=== PATIENT | female | born 1975 | race African-American/Black ===

== ENCOUNTER → 2017-06-21 | Outpatient (CLI) | payer BC ==
[~2017-06-21] MED LIST: CLC150 PO; ESCI10TA17; PRLSR20
--- NOTE | 2017-06-21 11:35 | Discharge Instructions ---
Discharge Instructions Procedure Procedure Date: June 21, 2017. Reason for visit: Left Breast Lump. Discharge Discharge Date: June 21, 2017. Discharge Diagnosis: status post breast biopsy Instructions Activity Recommendations: No limitations, Additional Limitations (see below) Return to School/Work: no limitations Recommended Home Diet: No Limitations Provider Instructions: ACTIVITY RECOMMENDATIONS: * No lifting, pushing, pulling or exercising the affected side for three days. RETURN TO SCHOOL/WORK: * You may return to work/school after the procedure, but do not perform any strenuous activities for 24 to 48 hours. MEDICATIONS: * Tylenol (two 325 mg) every four to six hours if needed for mild pain (if not allergic to Tylenol). DIET: * Resume previous diet. SPECIAL CARE INSTRUCTIONS: * Keep biopsy site dry for 24 hours. May shower after 24 hours, but do not soak (bathe) incision. * May remove Tegaderm (plastic patch) tomorrow AFTER showering. * Leave the steri-strips on for one week. Allow the steri-strips to fall off by themselves. If not off after one week, you may remove them. You may place a Bandaid crosswise over the strips, if desired. * Apply ice 10 minutes on and 10 minutes off as needed. * Wear a bra at bedtime to sleep more comfortably for 2-3 days. * Your referring physician should have the results after approximately 5 to 7 business days. * Call for unusual bleeding, fever, drainage, etc or if you have any questions call during normal business hours or after hours call Dr Weber, . FOLLOW UP VISIT: Follow-up with Referring Physician as scheduled. Allergies Uncoded Allergies: PCN (Allergy, Mild, 08/17/05) Dannielle Hyde Recommendations: Call your doctor if: * Temperature above 101 degrees * Pain not relieved by pain medicine ordered * There is increased drainage or redness from any incision * You have any unanswered questions or concerns. Your Doctors Instructions noted above were prepared by provider Kathleen Weber. Patient Signature Section: Patient Instructions Signature Page Pal Grant Patient (or Guardian) Signature/Date: I have read and understand the instructions given to me by my caregivers. Caregiver/RN/Doctor Signature/Date: The above-named patient and/or guardian has received patient instructions on this date. + Original Patient Signature Page (only) stays with chart. Please make copy for patient.
--- NOTE | 2017-06-21 14:18 | MAMMOGRAPHY REPORT ---
ULTRASOUND GUIDED BIOPSY LEFT BREAST: 06/21/2017 CLINICAL HISTORY: Suspicious left 11:00 breast mass. PATIENT CONSENT: The procedure, risks and benefits were discussed with the patient and informed writt en consent was obtained. A timeout was performed immediately prior to the procedure. PROCEDURE DESCRIPTION: With ultrasound guidance, aseptic technique, and lidocaine as the local anesth etic (1% lidocaine to anesthetize the skin and 1% lidocaine with epinephrine to anesthetize the deepe r tissues), the mass of concern in the left 11:00 breast was sampled 4 times with a 14-gauge Achieve biopsy needle. The needle was difficult to visualize during the procedure due to the very deep locat ion of the mass being biopsied. Immediately thereafter, with ultrasound guidance, aseptic technique, and lidocaine as the local anesthetic, a metallic localizer clip was placed centrally in the mass. Direct pressure was applied to the site immediately post procedure and hemostasis was achieved. Post procedure unilateral mammograms were performed to confirm placement of the clip in the expected locat ion of the breast mass. The patient tolerated the procedure without complication. She was given wou nd care instructions. The specimens were sent to pathology for analysis. COMPARISON: Comparison is made to exams dated: 06/21/2017 mammogram - [facility] and 12/17/2005 mammogram. IMPRESSION: ULTRASOUND GUIDED BIOPSY Ultrasound guided core needle biopsy of the suspicious mass in the left 11:00 breast, with clip place ment. The patient will receive pathology results from her referring provider. Kathleen Weber M.D. /:06/21/2017 12:43:37 Script Writer: Alix LAFLEUR)Miko), [facility]
--- NOTE | 2017-06-21 14:21 | MAMMOGRAPHY REPORT ---
BILATERAL DIGITAL DIAGNOSTIC MAMMOGRAM TOMOSYNTHESIS WITH CAD AND TARGETED BILATERAL ULTRASOUND: 2017 CLINICAL HISTORY: The patient reports a tender palpable lump in the left breast. TECHNIQUE: Breast tomosynthesis in addition to standard 2D mammography was performed. Current study was also evaluated with a Computer Aided Detection (CAD) system. Bilateral CC and MLO 2D and tomosyn thesis images were obtained. COMPARISON: Prior digitized mammograms dated 12/14/2005. BREAST COMPOSITION: There are scattered areas of fibroglandular density in both breasts. FINDINGS: A triangle marker ackerman the site of the palpable lump in the left upper inner quadrant. At the site of the palpable lump there is a lobulated spiculated irregular mass measuring approximately 2.4 x 2.6 x 2.7 cm. A few punctate and amorphous calcifications are seen within the mass. The codie evelia of both breasts demonstrate no suspicious masses, calcifications, or areas of architectural dis tortion. An asymmetry in the left lateral breast on the cc view is stable compared to the 2006 exam. Scattered bilateral benign-appearing calcifications are noted. There is a circumscribed oval benig n-appearing 12 mm mass in the right upper outer anterior breast which appears stable compared to the 2006 exam although ultrasound was performed. Targeted ultrasound was performed of the area of the palpable lump pointed out by the patient in the left breast at approximately 11:00, 11 cm from the nipple. At the site of the palpable lump there is a subtle isoechoic irregular mass which measures 2.2 x 1.6 x 1.9 cm. Note that measurements are more accurate on the mammogram. This corresponds with the mammographic mass and is suspicious for malign jacky. Recommend ultrasound-guided core needle biopsy for further evaluation. Targeted ultrasound was performed of the left axillary region. The exam is somewhat limited as the p atient was extremely anxious and would not adequately lift her arm for a thorough examination. Howev er, within the limitations of the exam,, there are morphologically normal left axillary lymph nodes w ithout clear evidence of adenopathy. Ultrasound was performed of the right upper outer anterior breast in the region of the mammographic m ass. In the right 9:00 breast, 3 cm from the nipple, there is an oval circumscribed parallel hypoech oic benign-appearing 11 x 5 x 11 mm mass. This corresponds with a mammographic mass which has been s table dating back to the 2006 exam, and is considered benign given long-term stability and likely rep resents a fibroadenoma. The biopsy was performed the same day. Postprocedural left CC and ML tomosynthesis images were obtai bryanna after the biopsy, which shows a new biopsy marker clip within the biopsied mass in the left 11:00 breast. IMPRESSION: ACR BI-RADS CATEGORY 4: SUSPICIOUS, TARGETED ULTRASOUND ACR BI-RADS CATEGORY 4: SUSPICIO US 1. Irregular 2.7 x 2.6 cm mass at the site of the palpable lump in the left 11:00 breast. The mass is suspicious for malignancy and ultrasound-guided core needle biopsy is recommended for further eval uation. 2. The remainder of both breasts demonstrate no mammographic evidence of malignancy. 3. No clear left axillary adenopathy is evident on ultrasound although evaluation was somewhat limite d. A phone call was made to the physician's office to confirm faxed results were received. The patient has been verbally notified of the results. The biopsy was performed the same day. Approximately 10% of breast cancers are not detected with mammography. A negative mammographic report should not delay biopsy if a clinically suggestive mass is present. Kathleen Weber M.D. ah/:06/21/2017 12:11:11 Clinical Practitioner: Alix LAFLEUR)(Jamey), [facility] letter sent: Abnormal 4/5 BI-RADS Code: ACR BI-RADS Category 4: Suspicious Ultrasound BI-RADS: ACR BI-RADS Category 4: Suspici ous
== END | disposition home or self-care (01) ==
LOC: C.MAMM 09:40
PROVIDERS: ATTEND Family Medicine
DX: N63.20 Unspecified lump in the left breast, unspecified quadrant (principal); C50.912 Malignant neoplasm of unspecified site of left female breast

== ENCOUNTER 2021-10-13 11:43 | Inpatient (IN) ==
--- NOTE | 2021-10-13 12:25 | Emergency Department Note ---
Impression & Plan Chest pain, Shortness of breath, Exercise hypoxemia, Abnormal ECG ED Provider Note NAME: JC HAWK AGE: 46 SEX: F : 1975 ARRIVES VIA: Walk-In INFORMANT: Patient ED PROVIDER(S): Jamison Cuevas DO CHIEF COMPLAINT: shortness of breath and chest pain HPI: Patient is a 46-year-old female morbidly obese with a past medical history of borderline hypertension, diabetes, dyslipidemia, GERD, PCOS, anxiety who presents to the ER from the PCPs office for shortness of breath. Shortness of breath has been getting worse over the past year and specifically over the past 2 weeks. She also admits to chest heaviness over the past 2 weeks. This can be after eating or after she exerts herself. She denies any belly pain, nausea, vomiting, or diarrhea. No dysuria, urgency, or frequency. She does admit to coughing up some pink sputum this week. She was seen by her PCP and referred in as she was found to be hypoxic with minimal exertion and an abnormal EKG. Pulse ox was 86 to 89% with minimal exertion per PCPs note. ROS: See above HPI for pertinent positives & negatives. A total of 10 systems reviewed and were otherwise negative. PAST MEDICAL HISTORY:See Below PAST SURGICAL HISTORY:See Below FAMILY HISTORY:See Below SOCIAL HISTORY:See Below HOME MEDICATIONS:See Below ALLERGIES:See Below VITALS:See Below PHYSICAL EXAMINATION: GENERAL: Sitting up in bed, alert, morbidly obese, disheveled, crying EYE EXAM: normal conjunctiva. PERRL and EOM's grossly intact. OROPHARYNX: Dry mucous membranes NECK: supple, no nuchal rigidity, no adenopathy, non-tender LUNGS: Distant lung sounds. Normal chest wall mechanics HEART: Distant, S1 normal and S2 normal ABDOMEN: abdomen soft, non-tender, normo-active bowel sounds, no masses, no rebound or guarding. UPPER EXTREMITIES: upper extremities are grossly normal. LOWER EXTREMITIES: No pitting edema. NEURO EXAM: Normal sensorium, cranial nerves II-XII grossly intact, normal speech, no gross weakness of arms, no gross weakness of legs. MEDICAL DECISION MAKING: Patient is a 46-year-old female with past medical history of PCOS, GERD, prediabetes, dyslipidemia, hypertension and morbid obesity that presents the ER for shortness of breath and chest pain. She was referred in by the PCP after being found to be hypoxic with only minimal exertion and EKG showing ST wave c hanges. No old to compare to. IV was established blood work was obtained. Labs show mild leukocytosis 11,000. Mild anemia 11. INR was unremarkable. D- dimer was elevated at 1070. BMP with a slightly elevated chloride at 108. LFTs bilirubin was unremarkable. Troponin was negative. COVID was negative. Duplex of lower extremities were negative. Attempted to obtain CT angio of the chest but IV site which was placed by IV team under ultrasound guidance blue. Had to use left arm which is limb restricted. Obtained access so she had access for admission however did not order anything through the IV. EKG does show ST wave changes and patient did have exertional hypoxia with only minimal exertion. She does warrant additional work-up. Chest x-ray was unremarkable. Discussed with Martínez Anthony for further evaluation. Will likely need a V/Q study in the morning as not currently available and an echo. Triage Nursing notes reviewed. Limited review of prior medical records performed Vital Signs: reviewed and remarkable for HTN and tachy Differential diagnosis: Differential diagnoses includes but is not limited to pneumonia, bronchitis, COPD/Asthma exacerbation, pneumothorax, pulmonary embolism, congestive heart failure, acute coronary syndrome ER treatment provided: See below Diagnostics interpreted by me: ECG: Sinus tachycardia rate of 102 Normal axis T wave inversion inferior leads ST depressions in the inferior leads Nonspecific ST wave changes in V4 through V6 QTC 471 No old to compare to Cardiac Monitoring: An order was placed for continuous cardiac monitoring. The monitor shows a rate of 100 with sinus rhythm. Laboratory studies: As stated above and show below. Imaging studies: AP upright 1 view the chest was unremarkable Consultation(s): Discussed with Martínez Anthony for further evaluation Procedures: none Critical Care: None Past Med/Surg History Medical History delivery delivered External hemorrhoid Frequency of urination History of cyst of breast History of lump of left breast History of ovarian cyst Surgical History H/O oral surgery S/P bilateral breast reduction S/P lumpectomy, left breast Family History Grandmother (Maternal) Breast cancer Myocardial infarction Mother Hyperlipemia Obesity Denies family history of Ovarian cancer Prostate cancer Colorectal cancer Social History Smoking Status: Never smoker Second Hand Exposure: No; Hx Alcohol Use: Yes Hx Substance Use: No Preferred Language: Bermudian Communication Ability: Effective Visual Impairment: No Limitations Hearing Ability: Normal Beliefs That Will Affect Care: None marital status: Single Current Living Situation: Family current occupational status: employed current occupation: camp director Feels Safe at Home: Yes Childhood Exposure to Second-Hand Smoke: Yes Dental Care, Regularly: Yes Physical Activity Frequency: Does not Exercise Seatbelt Use: always Sunscreen Use: No Allergies Allergies Allergy/AdvReac Type Severity Reaction Status Date / Time Penicillins Allergy Mild rash Verified 09/28/20 08:10 Home Meds Home Medications Medication Instructions Recorded Confirmed ascorbic acid (vitamin C) 1,000 mg 2 gm PO DAILY 09/28/18 10/13/21 tablet coenzyme Q10 75 mg capsule 75 mg PO DAILY 09/28/18 10/13/21 omega-3 fatty acids 1,000 mg See Rx Instructions PO .COMPLEX 10/28/18 10/13/21 capsule (Fish Oil Concentrate) exemestane 25 mg tablet 25 mg PO DAILY 12/30/18 10/13/21 cholecalciferol (vitamin D3) 4,000 unit PO DAILY 07/21/20 10/13/21 Results & Data (ED) Vital Signs Vital Signs - 24 hr 10/13/21 11:49 10/13/21 13:49 10/13/21 15:26 Temperature 37.2 C Temperature Source Oral Pulse Rate 100 H Pulse Rate [Apical] 80 93 H Respiratory Rate 22 19 22 Respiratory Effort / Characteristics Non-Labored Non-Labored Spontaneous Respiratory Depth Normal Normal Respiratory Pattern Regular Regular Blood Pressure 178/95 H Blood Pressure [Right Arm] 158/94 H 156/104 H Blood Pressure Mean 122 Blood Pressure Mean [Right Arm] 115 121 Blood Pressure Position [Right Arm] Sitting Pulse Oximetry 98 100 Oxygen Delivery Method Room Air Room Air Room Air Sepsis Recent Fever Within 48 Hours Yes Sepsis New/Unexplained Change in Mental Status No Sepsis Action Taken by Nursing No Action Required 10/13/21 15:27 10/13/21 17:00 Temperature Temperature Source Pulse Rate 88 Pulse Rate [Apical] 79 Respiratory Rate 20 22 Respiratory Effort / Characteristics Non-Labored Spontaneous Respiratory Depth Normal Respiratory Pattern Regular Blood Pressure Blood Pressure [Right Arm] 147/93 H Blood Pressure Mean Blood Pressure Mean [Right Arm] 111 Blood Pressure Position [Right Arm] Pulse Oximetry 100 100 Oxygen Delivery Method Room Air Room Air Sepsis Recent Fever Within 48 Hours Sepsis New/Unexplained Change in Mental Status Sepsis Action Taken by Nursing Laboratory Data Result diagrams: 10/13/21 14:24 10/13/21 14:24 Lab Results 10/13/21 10/13/21 10/13/21 Range/Units 13:00 14:24 14:24 WBC 11.45 H (4.8-10.8) K/ul RBC 5.30 H (3.93-5.22) M/uL Hgb 11.4 L (12.0-16.0) g/dl Hct 37.4 (34.1-44.9) % MCV 70.6 L (80.0-100.0) fL MCH 21.5 L (25.0-34.0) pg MCHC 30.5 L (32.0-36.0) g/dL RDW Std Deviation 39.8 (36.4-46.3) fL RDW Coeff of Supriya 15.8 H (11.5-14.5) % Plt Count 315 (130-400) K/uL MPV 10.1 (9.4-12.3) fL Immature Gran % (Auto) 0.3 % Neut % (Auto) 78.1 % Lymph % (Auto) 15.9 % [place] % (Auto) 4.7 % Eos % (Auto) 0.7 % Baso % (Auto) 0.3 % Neut # (Auto) 8.94 H (1.4-6.5) K/uL Lymph # (Auto) 1.82 (1.2-3.4) K/uL [place] # (Auto) 0.54 (0.24-0.82) K/uL Eos # (Auto) 0.08 (0-0.50) K/uL Baso # (Auto) 0.04 (0-0.2) K/uL Immature Gran # (Auto) 0.03 H (0.00-0.02) K/uL PT 11.6 (9.0-12.0) Seconds INR 1.1 (0.9-1.1) APTT 28.7 (21.0-31.0) Seconds PTT Ratio 1.0 D-Dimer 1070 H* (0-500) ug/L FEU Sodium (136-145) mmol/L Potassium (3.5-5.1) mmol/L Chloride (98-107) mmol/L Carbon Dioxide (21-32) mmol/L Anion Gap (3-11) BUN (6-23) mg/dl Creatinine (0.6-1.2) mg/dl Est Cr Clr Drug Dosing ml/min Est GFR ( Amer) ml/min Est GFR (Non-Af Amer) ml/min BUN/Creatinine Ratio (10-20) Glucose (70-99(Fasting)) mg/dl Calcium (8.5-10.1) mg/dl Total Bilirubin (0.2-1.0) mg/dl AST (13-39) U/L ALT (7-52) U/L Alkaline Phosphatase (34-104) U/L Total Creatine Kinase (26-192) U/L Troponin I High Sens (0-14) pg/ml B-Natriuretic Peptide (0-100) pg/ml Total Protein (6.0-8.3) gm/dl Albumin (3.4-5.0) gm/dl Globulin (2.5-4.0) gm/dl Albumin/Globulin Ratio (0.9-2) SARS-CoV-2, RNA, NAAT NEGATIVE (NEGATIVE) 10/13/21 10/13/21 10/13/21 Range/Units 14:24 14:24 14:24 WBC (4.8-10.8) K/ul RBC (3.93-5.22) M/uL Hgb (12.0-16.0) g/dl Hct (34.1-44.9) % MCV (80.0-100.0) fL MCH (25.0-34.0) pg MCHC (32.0-36.0) g/dL RDW Std Deviation (36.4-46.3) fL RDW Coeff of Supriya (11.5-14.5) % Plt Count (130-400) K/uL MPV (9.4-12.3) fL Immature Gran % (Auto) % Neut % (Auto) % Lymph % (Auto) % [place] % (Auto) % Eos % (Auto) % Baso % (Auto) % Neut # (Auto) (1.4-6.5) K/uL Lymph # (Auto) (1.2-3.4) K/uL [place] # (Auto) (0.24-0.82) K/uL Eos # (Auto) (0-0.50) K/uL Baso # (Auto) (0-0.2) K/uL Immature Gran # (Auto) (0.00-0.02) K/uL PT (9.0-12.0) Seconds INR (0.9-1.1) APTT (21.0-31.0) Seconds PTT Ratio D-Dimer (0-500) ug/L FEU Sodium 137 (136-145) mmol/L Potassium 4.0 (3.5-5.1) mmol/L Chloride 108 H (98-107) mmol/L Carbon Dioxide 21 (21-32) mmol/L Anion Gap 8 (3-11) BUN 8 (6-23) mg/dl Creatinine 0.72 (0.6-1.2) mg/dl Est Cr Clr Drug Dosing 168.4 ml/min Est GFR ( Amer) 117.2 ml/min Est GFR (Non-Af Amer) 101.1 ml/min BUN/Creatinine Ratio 11.1 (10-20) Glucose 86 (70-99(Fasting)) mg/dl Calcium 9.9 (8.5-10.1) mg/dl Total Bilirubin 0.5 (0.2-1.0) mg/dl AST 12 L (13-39) U/L ALT 9 (7-52) U/L Alkaline Phosphatase 86 (34-104) U/L Total Creatine Kinase 63 (26-192) U/L Troponin I High Sens 4.2 (0-14) pg/ml B-Natriuretic Peptide 16 (0-100) pg/ml Total Protein 7.8 (6.0-8.3) gm/dl Albumin 3.9 (3.4-5.0) gm/dl Globulin 3.9 (2.5-4.0) gm/dl Albumin/Globulin Ratio 1.0 (0.9-2) SARS-CoV-2, RNA, NAAT (NEGATIVE) Administered Medications Aspirin (Aspirin Chew 324 Mg) 324 mg PO NOW STA Stop: 10/13/21 15:15 Last Admin: 10/13/21 15:30 Dose: 324 mg Documented By: CRISTINE Imaging Data Radiologist's Impression: Chest X-Ray 10/13/21 11:55 XR chest 1V portable CLINICAL HISTORY: Atypical chest pain. COMPARISON STUDY: Chest radiograph January 18, 2006. FINDINGS: Study is mildly compromised given suboptimal penetration related to portable technique. Lung volumes are normal. Lungs are clear. There is no pneumothorax or pleural effusion. Cardiac size is normal. Mediastinal contours are normal. There is no evidence for pulmonary edema. IMPRESSION: No acute cardiopulmonary findings. ACT 112: Negative or not required by law. Electronically signed by: Gómez Rodriguez M.D. 10/13/2021 1:38 PM Venous Doppler Study 10/13/21 16:10 ULTRASOUND BILATERAL LOWER EXTREMITY VENOUS CLINICAL HISTORY: Lower extremity edema. COMPARISON STUDY: No priors. TECHNIQUE: Real-time, grayscale, and color Doppler sonography of the deep veins of the right and left lower extremity was performed from the inguinal crease to the calf. Compression and augmentation were utilized. The examination is degraded by large body habitus. FINDINGS: There is no sonographic evidence of deep venous thrombosis identified in the right or left lower extremity. The common femoral, superficial femoral, and popliteal veins are patent and normally compressible bilaterally. The greater saphenous vein and the profunda femoris vein at the junction with the common femoral vein are clear in both legs. The visualized calf veins are patent bilaterally. IMPRESSION: There is no sonographic evidence of deep venous thrombosis identified in the right or left lower extremity. ACT 112: Negative or not required by law. Electronically signed by: Chad Romeo M.D. 10/13/2021 5:58 PM Discharge Plan Visit Data Chief Complaint: Abnormal Labs/Diagnostic Testing Stated Complaint: ADNORMAL EKG, DR REF OVER ED Provider: Jamison Cuevas Discharge Problem: Chest pain, Shortness of breath, Exercise hypoxemia, Abnormal ECG Forms Stand Alone Forms: My [facility] Prescriptions Prescriptions: No Action exemestane 25 mg tablet 25 mg PO DAILY cholecalciferol (vitamin D3) 4,000 unit PO DAILY ascorbic acid (vitamin C) 1,000 mg tablet 2 gm PO DAILY coenzyme Q10 75 mg capsule 75 mg PO DAILY omega-3 fatty acids [Fish Oil Concentrate] 1,000 mg capsule See Rx Instructions PO .COMPLEX Label Comments: PO ; Rx Instructions: PO ; Referrals Referrals: Oumou Elizalde MD [Primary Care Provider] -
--- NOTE | 2021-10-13 13:41 | XRay Report ---
XR chest 1V portable CLINICAL HISTORY: Atypical chest pain. COMPARISON STUDY: Chest radiograph January 18, 2006. FINDINGS: Study is mildly compromised given suboptimal penetration related to portable technique. Ruby g volumes are normal. Lungs are clear. There is no pneumothorax or pleural effusion. Cardiac size is normal. Mediastinal contours are normal. There is no evidence for pulmonary edema. IMPRESSION: No acute cardiopulmonary findings. ACT 112: Negative or not required by law. Electronically signed by: Gómez Rodriguez M.D. 10/13/2021 1:38 PM
[2021-10-13 14:37] LABS: Basophils # (auto) 0.04 K/uL (0-0.2); Basophils % (auto) 0.3 %; Eosinophils # (auto) 0.08 K/uL (0-0.50); Eosinophils % (auto) 0.7 %; Hematocrit (blood only) 37.4 % (34.1-44.9); Hemoglobin 11.4 g/dl (12.0-16.0); Immature Granulocytes # (auto) 0.03 K/uL (0.00-0.02); Immature Granulocytes % (auto) 0.3 %; Lymphocytes # (auto) 1.82 K/uL (1.2-3.4); Lymphocytes % (auto) 15.9 %; Mean Corpuscular Hemoglobin 21.5 pg (25.0-34.0); Mean Corpuscular Hgb Conc 30.5 g/dL (32.0-36.0); Mean Corpuscular Volume 70.6 fL (80.0-100.0); Mean Platelet Volume 10.1 fL (9.4-12.3); Monocytes # (auto) 0.54 K/uL (0.24-0.82); Monocytes % (auto) 4.7 %; Neutrophils # (auto) 8.94 K/uL (1.4-6.5); Neutrophils % (auto) 78.1 %; Platelet Count 315 K/uL (130-400); RDW Coefficient of Variation 15.8 % (11.5-14.5); RDW Standard Deviation 39.8 fL (36.4-46.3); White Blood Count 11.45 K/ul (4.8-10.8)
[2021-10-13 14:47] LABS: INR 1.1 (0.9-1.1); Partial Thromboplastin Time 28.7 Seconds (21.0-31.0); Prothrombin Time 11.6 Seconds (9.0-12.0)
[2021-10-13 14:49] LABS: D Dimer 1070 ug/L FEU (0-500)
[2021-10-13 15:06] LABS: Albumin Level 3.9 gm/dl (3.4-5.0); BUN Creatinine Ratio 11.1 (10-20); Bilirubin,Total 0.5 mg/dl (0.2-1.0); Calcium 9.9 mg/dl (8.5-10.1); Creatinine Clr Calc Pharmacy 168.4 ml/min; Est GFR (African American) 117.2 ml/min; Est GFR (Non-African American) 101.1 ml/min; Globulin 3.9 gm/dl (2.5-4.0); Total Protein 7.8 gm/dl (6.0-8.3)
[2021-10-13 15:11] LABS: Troponin I High Sensitivity 4.2 pg/ml (0-14)
[2021-10-13] MEDS ORDERED: ASPIRIN CHEW 324 MG PO STA (15:14)
--- NOTE | 2021-10-13 16:03 | Electrocardiogram Report ---
Test Reason : Blood Pressure : / mmHG Vent. Rate : 102 BPM Atrial Rate : 102 BPM P-R Int : 162 ms QRS Dur : 090 ms QT Int : 362 ms P-R-T Axes : 047 046 -13 degrees QTc Int : 471 ms Sinus tachycardia Left atrial enlargement T wave abnormality, consider inferior ischemia Abnormal ECG No previous ECGs available Confirmed by John Vieira ([id number]) on 10/13/2021 4:02:59 PM Referred By: Confirmed By:John Vieira
--- NOTE | 2021-10-13 17:59 | Ultrasound Report ---
ULTRASOUND BILATERAL LOWER EXTREMITY VENOUS CLINICAL HISTORY: Lower extremity edema. COMPARISON STUDY: No priors. TECHNIQUE: Real-time, grayscale, and color Doppler sonography of the deep veins of the right and left lower extremity was performed from the inguinal crease to the calf. Compression and augmentation wer e utilized. The examination is degraded by large body habitus. FINDINGS: There is no sonographic evidence of deep venous thrombosis identified in the right or left lower extremity. The common femoral, superficial femoral, and popliteal veins are patent and normally compressible bilaterally. The greater saphenous vein and the profunda femoris vein at the junction w ith the common femoral vein are clear in both legs. The visualized calf veins are patent bilaterally. IMPRESSION: There is no sonographic evidence of deep venous thrombosis identified in the right or lef t lower extremity. ACT 112: Negative or not required by law. Electronically signed by: Chad Romeo M.D. 10/13/2021 5:58 PM
[2021-10-13] MEDS ORDERED: ONDANSETRON INJ 2 MG/ML 2 ML VIAL IV PRN (20:55)
--- NOTE | 2021-10-13 21:29 | History & Physical Report ---
Date of Service October 13, 2021 Assessment & Plan (1) Shortness of breath: Plan: Likely due to obesity and essentially no exercise on a daily basis. Patient's mother had CHF, and she is very concerned about this as well. BNP was normal. - Echo in AM (2) Exercise hypoxemia: Plan: Concern for PE due to elevated d-dimer, but d-dimer is elevated in obesity. "Since increase in body size is associated with coagulation activation, D-dimer is elevated in many obese patients making this laboratory tool irrelevant in excluding thrombosis." ([email or web address]). - B/l Dopplers negative for DVT - CTA was attempted in the ER, but IV site blew and IV team was unable to find any other sites. To get CTA, she would need a central line or EJ placed. - My concern is really quite low for PE. After her anxiety has subsided, she is not tachycardic. She is not hypoxemic. Troponin and BNP both normal. -> If echo shows no signs of right-heart strain, would feel PE is low enough concern that I would defer further testing. (3) Abnormal ECG: Plan: Some TWIs in aVF. EKG quality is poor, but I do not note others. - Troponin negative after 3-4 weeks of shortness of breath and no chest pain. Will trend troponins and EKGs, but low concern for cardiac ischemia. (4) Anxiety: Plan: Anxiety clearly playing a large role in her presentation. - Consider SSRI as outpatient. Admission and Anticipated Discharge Date Admission Date: October 13, 2021 History of Present Illness Primary Care Provider: Oumou Elizalde MD 46yo F w/ hx of prior left-sided breast cancer who presents with shortness of breath. The patient reports that for 3-4 weeks, she has been increasingly short of breath with exertion. She reports that she is very sedentary at baseline. She works from home and reports that she mostly sits at her computer and walks to and from the bathroom throughout the day. She otherwise has no notable exercise. Over the last 3-4 weeks, she notes that she has had some increased shortness of breath even with her walking. Sometimes, she will also note some mild chest discomfort that resolves with rest. The patient went to her PCP's office today and reportedly had a pulse ox of 88% with exertion. She was also tachycardic with TW inversions in EKG; however, denied any chest pain at the time. She also notes that last Saturday, she had a cough with some mild pink frothy sputum. Allergies Allergy/AdvReac Type Severity Reaction Status Date / Time Penicillins Allergy Mild rash Verified 10/13/21 19:37 Home Medications Medication Instructions Recorded Confirmed Type ascorbic acid (vitamin C) 1,000 mg 2 gm PO DAILY 09/28/18 10/13/21 History tablet exemestane 25 mg tablet 25 mg PO DAILY 12/30/18 10/13/21 History Byron Q Coq10 10 mg PO DAILY 10/13/21 10/13/21 History cholecalciferol (vitamin D3) 50 100 mcg PO DAILY 10/13/21 10/13/21 History mcg (2,000 unit) tablet (Vitamin D3) omega-3 fatty acids-fish oil 684 1 cap PO DAILY 10/13/21 10/13/21 History mg-1,200 mg capsule,delayed release Past Med/Surg History Medical History surgical treatment delivery delivered External hemorrhoid Frequency of urination History of cyst of breast History of lump of left breast History of ovarian cyst Surgical History H/O oral surgery tooth extraction S/P bilateral breast reduction S/P lumpectomy, left breast Family History Grandmother (Maternal) Breast cancer Myocardial infarction Mother Hyperlipemia Obesity Denies family history of Ovarian cancer Prostate cancer Colorectal cancer Social History Smoking Status: Never smoker Second Hand Exposure: No; Hx Alcohol Use: Yes Hx Substance Use: No Preferred Language: Estonian Communication Ability: Effective Visual Impairment: No Limitations Hearing Ability: Normal Beliefs That Will Affect Care: None marital status: Single Current Living Situation: Family current occupational status: employed current occupation: health information management director Feels Safe at Home: Yes Childhood Exposure to Second-Hand Smoke: Yes Dental Care, Regularly: Yes Physical Activity Frequency: Does not Exercise Seatbelt Use: always Sunscreen Use: No Review of Systems Review of Systems: All systems reviewed & are unremarkable except as noted in HPI & below Physical Exam Constitutional: WD/WN, vitals as above + acute distress and + morbidly obese Eyes: EOM intact bilaterally; no conjunctival abnormality ENMT: external ear and nose normal, oropharynx normal Neck: trachea midline, no thyromegaly normal visual inspection Respiratory: normal respiratory effort, lungs clear to auscultation no respiratory distress Cardiovascular: Rate/Rhythm: regular rate and + tachycardic Gastrointestinal (Abdomen): Inspection/Auscultation: abdomen normal to inspection; abdomen not distended Musculoskeletal: no cyanosis or clubbing, extremities motor strength 5/5 Skin: no rashes, warm and dry Neurologic: moves all extremities and awake Psychiatric: Orientation: alert, oriented to person and cooperative Affect: + anxious affect Results & Data Results & Data ([facility]) Vital Signs (Past 12 Hours) Vital Signs Temp Pulse Pulse Resp BP BP Pulse Ox 10/13/21 20:44 36.7 C 87 20 138/99 98 10/13/21 19:00 84 21 139/82 99 10/13/21 17:00 79 22 147/93 H 100 10/13/21 15:27 88 20 100 10/13/21 15:26 93 H 22 156/104 H 100 10/13/21 13:49 80 19 158/94 H 10/13/21 11:49 37.2 C 100 H 22 178/95 H 98 O2 Del Method 10/13/21 20:44 Room Air 10/13/21 19:00 Room Air 10/13/21 17:00 Room Air 10/13/21 15:27 Room Air 10/13/21 15:26 Room Air 10/13/21 13:49 Room Air 10/13/21 11:49 Room Air Code Status & VTE Plan VTE Prophylaxis Plan VTE Prophylaxis will be ordered: Yes PG Care Time/CCT Total # of Minutes Spent Total Time Spent with Patient: Total time spent is greater than 50% in coordination of care (as documented) at patient's floor/unit and/or counseling patient: Coding Level of Care Code INT OBSERVATION CARE 70M LVL 3 Diagnoses Shortness of breath R06.02 Exercise hypoxemia R09.02 Abnormal ECG R94.31 Anxiety F41.9
[2021-10-14] MEDS ORDERED: ALUMINUM/MAGNESIUM SUSP 18 ML, LIDOCAINE VISCOUS 2% SOLN 6 ML, BARCODE IDENTIFIER 1 EACH PO ONE (07:46)
[2021-10-14 08:23] LABS: Basophils # (auto) 0.06 K/uL (0-0.2); Basophils % (auto) 0.7 %; Eosinophils # (auto) 0.15 K/uL (0-0.50); Eosinophils % (auto) 1.8 %; Hematocrit (blood only) 37.4 % (34.1-44.9); Hemoglobin 11.1 g/dl (12.0-16.0); Immature Granulocytes # (auto) 0.03 K/uL (0.00-0.02); Immature Granulocytes % (auto) 0.4 %; Lymphocytes # (auto) 2.17 K/uL (1.2-3.4); Lymphocytes % (auto) 25.7 %; Mean Corpuscular Hemoglobin 21.5 pg (25.0-34.0); Mean Corpuscular Hgb Conc 29.7 g/dL (32.0-36.0); Mean Corpuscular Volume 72.3 fL (80.0-100.0); Mean Platelet Volume 10.1 fL (9.4-12.3); Monocytes # (auto) 0.51 K/uL (0.24-0.82); Neutrophils # (auto) 5.53 K/uL (1.4-6.5); Neutrophils % (auto) 65.4 %; Platelet Count 291 K/uL (130-400); RDW Coefficient of Variation 15.7 % (11.5-14.5); RDW Standard Deviation 40.6 fL (36.4-46.3); Red Blood Count 5.17 M/uL (3.93-5.22); White Blood Count 8.45 K/ul (4.8-10.8)
[2021-10-14] MEDS ORDERED: FAMOTIDINE 20 MG TAB PO SCH (09:00)
[2021-10-14 09:01] LABS: Calcium 9.4 mg/dl (8.5-10.1); Creatinine Clr Calc Pharmacy 146.2 ml/min; Est GFR (African American) 98.7 ml/min; Est GFR (Non-African American) 85.2 ml/min; Potassium 3.8 mmol/L (3.5-5.1)
[2021-10-14 09:26] LABS: Iron 54 mcg/dl (35-150); Total Iron Binding Cap Calc 292 mcg/dl (250-450); Transferrin (FE) Percent Satur 18 % (15-50); Unsaturated Iron Binding Cap 238 mcg/dl (155-355)
[2021-10-14 09:27] LABS: Troponin I High Sensitivity 4.7 pg/ml (0-14)
[2021-10-14 09:41] LABS: Ferritin 79.4 ng/ml (8-388)
--- NOTE | 2021-10-14 11:00 | XCELERA ---
[id number]
--- NOTE | 2021-10-14 14:45 | Cardiology Consultation ---
Date of Consultation October 14, 2021 Assessment & Plan (1) Chest pain: (2) Shortness of breath: (3) Abnormal ECG: Plan 1. Chest discomfort: She describes a relatively continuous chest discomfort for the last several weeks with periodic exacerbation but no clear exertional component. She is having dyspnea on exertion but not clear exertional chest discomfort. It is atypical for coronary artery disease, it might be more consistent with pericarditis. Her echocardiogram does not show any significant abnormality (no wall motion abnormalities) and I do not have a comparison electrocardiogram to see whether these changes are new however they have been present since she has been here. It may be worth consideration of treating this as pericarditis for now (colchicine 0.6 mg twice daily). That diagnosis can be difficult to make and a pericardial effusion is not necessary. 2. Shortness of breath: She describes worsening dyspnea on exertion for the last several weeks, she also had desaturation with exercise. Although dyspnea exertion can be an anginal equivalent that would not typically cause oxygen desaturation. We could consider stress testing, potentially on Saturday, if other evaluation is unrevealing. She tells me that she can walk on a treadmill. 3. Abnormal electrocardiogram: She has inferior T wave abnormalities which could be due to pericarditis. There are nonspecific so they could be due to something else as well or can be longstanding. Since we have identified these in association with nonspecific chest discomfort I would consider treating her for pericarditis with colchicine as noted above. History of Present Illness Reason for Consultation: Chest pain, DAVILA Attending Physician: Adelaide Dean MD History of Present Illness This is a 46-year-old obese woman who has a history of breast cancer and more recently some chest discomfort. She believes this has occurred over the last several weeks and describes it as an occasional significant chest discomfort with some associated back discomfort. Although the more severe pain is not always present she does feel a dull sensation in her chest even when she is not having the sharp chest pain. She also has a history of GERD however she feels that that is quite different and she has had that on a longstanding basis. She believes she has had some of the symptoms of GERD this hospitalization, that was relieved by a GI cocktail, however the other discomfort remains. She has had shortness of breath over the last several weeks as well. She has not had lightheadedness, dizziness or palpitations. She feels that she has not had a respiratory infection over the last few weeks (such as COVID or a URI). She feel s that there was a clear change in how she feels over the past few weeks. She did present to the emergency room after an evaluation as an outpatient where she was found to be hypoxic with minimal exertion. Following presentation an electrocardiogram was done which showed sinus rhythm with inferior T wave abnormalities, her first electrocardiogram here was on October 13, 2021 and there is no prior comparison. Today's electrocardiogram is similar. An echocardiogram done on October 14, 2021 shows normal left ventricular systolic function with no wall motion abnormalities. No significant valvular abnormalities. Allergies Allergy/AdvReac Type Severity Reaction Status Date / Time Penicillins Allergy Mild rash Verified 10/13/21 19:37 Home Medications Medication Instructions Recorded Confirmed Type ascorbic acid (vitamin C) 1,000 mg 2 gm PO DAILY 09/28/18 10/13/21 History tablet exemestane 25 mg tablet 25 mg PO DAILY 12/30/18 10/13/21 History Byron Q Coq10 10 mg PO DAILY 10/13/21 10/13/21 History cholecalciferol (vitamin D3) 50 100 mcg PO DAILY 10/13/21 10/13/21 History mcg (2,000 unit) tablet (Vitamin D3) omega-3 fatty acids-fish oil 684 1 cap PO DAILY 10/13/21 10/13/21 History mg-1,200 mg capsule,delayed release Patient History Medical History surgical treatment delivery delivered External hemorrhoid Frequency of urination History of cyst of breast History of lump of left breast History of ovarian cyst Surgical History H/O oral surgery tooth extraction S/P bilateral breast reduction S/P lumpectomy, left breast Family History Grandmother (Maternal) Breast cancer Myocardial infarction Mother Hyperlipemia Obesity Denies family history of Ovarian cancer Prostate cancer Colorectal cancer Social History Smoking Status: Never smoker Second Hand Exposure: No; Hx Alcohol Use: Yes Hx Substance Use: No Preferred Language: Solomon Islander Communication Ability: Effective Visual Impairment: No Limitations Hearing Ability: Normal Beef Selector Required: No Beliefs That Will Affect Care: None marital status: Single Current Living Situation: Family current occupational status: employed current occupation: director commercial sales Feels Safe at Home: Yes Childhood Exposure to Second-Hand Smoke: Yes Dental Care, Regularly: Yes Physical Activity Frequency: Does not Exercise Seatbelt Use: always Sunscreen Use: No Review of Systems Review of Systems: All systems reviewed & are unremarkable except as noted in HPI & below Physical Exam Physical Exam: Constitutional: Alert, cooperative and in no distress. She is obese. HEENT: Unremarkable Neck: No jugular venous distention, carotid pulses are normal and equal bilaterally without bruits. Pulmonary: Clear to auscultation bilaterally. Cardiac: Regular rhythm with no murmur, gallop or rub. Abdomen: Soft, nontender with normal bowel sounds. Extremities: No edema. Distal pulses intact. Neurologic: No focal findings. Gait was not tested. Skin: No rash, ecchymoses or petechiae. Results & Data ([facility]) Vital Signs (Past 12 Hours) Vital Signs Temp Pulse Pulse Resp BP Pulse Ox O2 Del Method 10/14/21 11:10 37.0 C 85 20 139/87 99 Room Air 10/14/21 07:56 36.8 C 75 20 148/82 H 97 Room Air 10/14/21 02:54 36.6 C 77 18 118/81 97 Room Air Laboratory Results Cardiac Enzymes 10/13/21 10/13/21 10/13/21 Range/Units 14:24 14:24 21:38 AST 12 L (13-39) U/L Troponin I High Sens 4.2 4.5 (0-14) pg/ml B-Natriuretic Peptide 16 (0-100) pg/ml 10/14/21 Range/Units 07:15 AST (13-39) U/L Troponin I High Sens 4.7 (0-14) pg/ml B-Natriuretic Peptide (0-100) pg/ml Coagulation 10/13/21 10/13/21 Range/Units 14:24 14:24 PT 11.6 (9.0-12.0) Seconds APTT 28.7 (21.0-31.0) Seconds B-Natriuretic Peptide 16 (0-100) pg/ml CBC 10/14/21 Range/Units 07:15 WBC 8.45 (4.8-10.8) K/ul RBC 5.17 (3.93-5.22) M/uL Hgb 11.1 L (12.0-16.0) g/dl Hct 37.4 (34.1-44.9) % Plt Count 291 (130-400) K/uL Neut # (Auto) 5.53 (1.4-6.5) K/uL Lymph # (Auto) 2.17 (1.2-3.4) K/uL [place]wood # (Auto) 0.51 (0.24-0.82) K/uL Eos # (Auto) 0.15 (0-0.50) K/uL Baso # (Auto) 0.06 (0-0.2) K/uL Comprehensive Metabolic Panel 10/13/21 10/14/21 Range/Units 14:24 07:15 Sodium 137 139 (136-145) mmol/L Potassium 4.0 3.8 (3.5-5.1) mmol/L Chloride 108 H 107 (98-107) mmol/L Carbon Dioxide 21 25 (21-32) mmol/L BUN 8 10 (6-23) mg/dl Creatinine 0.72 0.83 (0.6-1.2) mg/dl Glucose 86 89 (70-99(Fasting)) mg/dl Calcium 9.9 9.4 (8.5-10.1) mg/dl AST 12 L (13-39) U/L ALT 9 (7-52) U/L Alkaline Phosphatase 86 (34-104) U/L Total Protein 7.8 (6.0-8.3) gm/dl Albumin 3.9 (3.4-5.0) gm/dl Intake and Output 10/13/21 10/14/21 10/14/21 22:59 06:59 14:59 Intake Total 120 / 120 Balance 120 / 120 Intake: Oral 120 / 120 Other: Other Intake Source NPO # Unmeasured Voids 1 Weight 181.5 kg Weight Measurement Method Chair Scale Diagnostic Findings Telemetry: Sinus rhythm, no significant arrhythmia PG Care Time/CCT Total # of Minutes Spent Total Time Spent with Patient: Total time spent is greater than 50% in coordination of care (as documented) at patient's floor/unit and/or counseling patient: Coding Level of Care Code 89585 Inpt Consult Level 4 Diagnoses Chest pain R07.2 Chest pain type: precordial pain Shortness of breath R06.02 Abnormal ECG R94.31 (1) Chest pain Chest pain type: precordial pain Qualified Code(s): R07.2 - Precordial pain
[2021-10-14] MEDS ORDERED: ACETAMINOPHEN 325 MG TAB PO PRN (16:03)
--- NOTE | 2021-10-14 16:04 | Electrocardiogram Report ---
Test Reason : Blood Pressure : / mmHG Vent. Rate : 079 BPM Atrial Rate : 079 BPM P-R Int : 158 ms QRS Dur : 086 ms QT Int : 412 ms P-R-T Axes : 029 038 -11 degrees QTc Int : 472 ms Normal sinus rhythm Nonspecific T wave abnormality Abnormal ECG When compared with ECG of 13-OCT-2021 12:00, No significant change Confirmed by Doroteo Billy ([id number]) on 10/14/2021 4:03:48 PM Referred By: REFERRED SELF Confirmed By:Doroteo Billy
--- NOTE | 2021-10-14 16:28 | Hospitalist Progress Note ---
Date of Service October 14, 2021 Assessment & Plan (1) Pericarditis: Plan: With chest pains, chronic exertional dyspnea, and now with ESR 110. ECHO normal. ECG with inverted TWs inferior leads, trops negative x 2 Consulted Cardiology-concern for pericarditis DId have recent fever and could have viral illness. COVID negative -start colchicine 0.6mg po bid -follow clinically -consider NSAIDs as well (2) Shortness of breath: Plan: Likely due to obesity and essentially no exercise on a daily basis. Patient's mother had CHF, and she is very concerned about this as well. BNP was normal. POx normal at rest do not suspect PE Dopplers legs neg - Echo normal likely restrictive lung disease du et obesity she is asking for request to obesity medicine specialist-gave info for Dr. Catina Wilcox on discharge 12 step walk test prior to discharge needs PFTs, sleep study as outpt -check CT chest now noncon given h/o breast CA and radiation (3) Chest pain: Plan: 2/2 pericarditis as above some substernal CP burning in nature is 2/2 GERD as was relieved instantly with GI cocktail start Protonix (4) Exercise hypoxemia: Plan: Concern for PE due to elevated d-dimer, but d-dimer is elevated in obesity. "Since increase in body size is associated with coagulation activation, D-dimer is elevated in many obese patients making this laboratory tool irrelevant in excluding thrombosis." ([email or web address]). - B/l Dopplers negative for DVT - CTA was attempted in the ER, but IV site blew and IV team was unable to find any other sites. To get CTA, she would need a central line or EJ placed. - My concern is really quite low for PE. After her anxiety has subsided, she is not tachycardic. She is not hypoxemic. Troponin and BNP both normal. - echo shows no signs of right-heart strain (5) Abnormal ECG: Plan: Some TWIs in aVF. liely 2/2 pericarditis - Troponin negative after 3-4 weeks of shortness of breath and no chest pain. Will trend troponins and EKGs, but low concern for cardiac ischemia. plan for stress test Saturday as per Cardio reocmmendations (6) Anxiety: Plan: Anxiety clearly playing a large role in her presentation. - Consider SSRI -will d/w her (7) GERD without esophagitis: Plan: adding protonix (8) Morbid obesity: Plan: BMI 64.7 needs weight loss, referred to Obesity Med as above Plan Dispo-continued stay Admission and Anticipated Discharge Date Admission Date: October 13, 2021 Subjective Pt feels the burning in her chest was better with GI cocktial. Still getting intermittent aching pain in left upper arm and also in entire back. Is very anxious. Has been SOB with exertion for a long time and checked her POx at home and usually dips to 88% with exertion. Remains 98% on RA at rest. No h/o asthma, smoking, or other lung issues. DId have XRT to left chest wall after breast CA. Reports she had a fever to 100-101 the day before admission, no other URI symptoms. Discussed case with Cardiology Tele with NSR rates 70-80s Review of Systems Review of Systems: All systems reviewed & are unremarkable except as noted in HPI & below Physical Exam Constitutional: WD/WN, vitals as above + morbidly obese Eyes: + anicteric sclerae Neck: trachea midline, no thyromegaly Respiratory: normal respiratory effort, lungs clear to auscultation Cardiovascular: RRR, no murmur, no edema Chest (Breasts): Chest: normal inspection of chest Gastrointestinal (Abdomen): normal bowel sounds, soft, nontender, no hepatosplenomegaly Musculoskeletal: Extremities: extremities normal to inspection; no cyanosis and no clubbing Skin: no rashes, warm and dry Neurologic: moves all extremities and awake; no focal motor deficits Psychiatric: Orientation: alert and oriented x 3 Mood: + anxious mood Lymphatic: no lymphedema Results & Data Results & Data ([facility]) Vital Signs (Past 12 Hours) Vital Signs Temp Pulse Resp BP Pulse Ox O2 Del Method 10/14/21 14:56 37.0 C 77 20 137/81 97 Room Air 10/14/21 11:10 37.0 C 85 20 139/87 99 Room Air 10/14/21 07:56 36.8 C 75 20 148/82 H 97 Room Air Laboratory Results labs reviewed PG Care Time/CCT Total # of Minutes Spent Total Time Spent with Patient: Total time spent is greater than 50% in coordination of care (as documented) at patient's floor/unit and/or counseling patient: Coding Level of Care Code 70945 Subseq Hosp Care Lvl 3 Diagnoses Pericarditis I31.9 Shortness of breath R06.02 Chest pain R07.2 Chest pain type: precordial pain Exercise hypoxemia R09.02 Abnormal ECG R94.31 Anxiety F41.9 GERD without esophagitis K21.9 Morbid obesity E66.01 (1) Chest pain Chest pain type: precordial pain Qualified Code(s): R07.2 - Precordial pain
[2021-10-14] MEDS: COLCHICINE 0.6 MG TAB PO SCH (16:57)
[2021-10-14] MEDS: PANTOprazole 40 MG TAB PO SCH (16:57)
--- NOTE | 2021-10-14 20:46 | CT Scan Report ---
CT SCAN OF THE CHEST WITHOUT IV CONTRAST CLINICAL HISTORY: Dyspnea. Hypoxia. COMPARISON STUDY: Chest x-ray dated 10/13/2021. TECHNIQUE: CT scan of the thorax was performed from the thoracic inlet to the upper abdomen. Images are reviewed in the axial, sagittal, and coronal planes. IV contrast was not administered for this ex amination as per the referring clinician. A dose lowering technique was utilized adhering to the [facility] of [place]. CT DOSE: 1262.50 mGy.cm FINDINGS: Thyroid: Enlarged and heterogeneous. Thoracic aorta: The thoracic aorta is normal in caliber and demonstrates standard 3-vessel arch anato my. Heart: The heart is normal in size and without pericardial effusion. Lungs and pleural spaces: There is mild bibasilar scarring/atelectasis. The lungs and pleural spaces are otherwise clear. The trachea and central airways are patent. Mediastinum: There is no mediastinal lymphadenopathy. Nehal: Not well assessed without IV contrast. Axillae: There is no axillary lymphadenopathy. Upper abdomen: Partially visualized upper abdominal viscera is within normal limits. Skeletal structures: No lytic or blastic bony lesions are seen. IMPRESSION: No active disease in the chest. ACT 112: Negative or not required by law. Electronically signed by: Chad Romeo M.D. 10/14/2021 8:44 PM
[2021-10-15] MEDS: COLCHICINE 0.6 MG TAB PO SCH ×2 (08:17→19:46)
[2021-10-15] MEDS ORDERED: hydrOXYzine HCl 25 MG TAB PO STA (08:17)
[2021-10-15] MEDS: PANTOprazole 40 MG TAB PO SCH ×2 (08:17→19:47)
--- NOTE | 2021-10-15 12:05 | Cardiology Progress Note ---
Date of Service October 15, 2021 Assessment & Plan (1) Chest pain: (2) Shortness of breath: (3) Abnormal ECG: Plan 1. Chest discomfort: She describes a relatively continuous chest discomfort for the last several weeks with periodic exacerbation but no clear exertional component. She is having dyspnea on exertion but not clear exertional chest discomfort. It is atypical for coronary artery disease, it might be more consistent with pericarditis. Her echocardiogram does not show any significant abnormality (no wall motion abnormalities). She does have inferior electrocardiographic T wave abnormalities but I do not have a comparison electrocardiogram to see whether these changes are new however they have been present since she has been here. She is now on colchicine since yesterday (colchicine 0.6 mg twice daily) and her symptoms are better, although I cannot be confident that it was the colchicine. Pericarditis can be difficult to diagnose and a pericardial effusion is not necessary. I think it would probably be prudent to perform a stress test and I will schedule that for tomorrow. 2. Shortness of breath: She describes worsening dyspnea on exertion for the last several weeks, she also had desaturation with exercise. Although dyspnea exertion can be an anginal equivalent that would not typically cause oxygen desaturation. I think we should perform stress testing which I have scheduled for Saturday, I would try to do it as a treadmill since that would reproduce her symptoms and she tells me that she can walk on a treadmill. She may not do very well but we can reproduce her shortness of breath and reach target heart rate that should be sufficient. 3. Abnormal electrocardiogram: She has inferior T wave abnormalities which could be due to pericarditis. There are nonspecific so they could be due to something else as well or can be longstanding. Since we have identified these in association with nonspecific chest discomfort I would continue treating her for pericarditis with colchicine as noted above and less we identify some other cause on stress testing. Admission and Anticipated Discharge Date Admission Date: October 13, 2021 Subjective She tells me that she definitely feels better today than yesterday, she had some minor chest aching but it is improved. No other cardiovascular symptoms. Physical Exam Physical Exam: Constitutional: Alert, cooperative and in no distress. She is obese. HEENT: Unremarkable Neck: No jugular venous distention, carotid pulses are normal and equal bilaterally without bruits. Pulmonary: Clear to auscultation bilaterally. Cardiac: Regular rhythm with no murmur, gallop or rub. Abdomen: Soft, nontender with normal bowel sounds. Extremities: No edema. Distal pulses intact. Neurologic: No focal findings. Gait was not tested. Skin: No rash, ecchymoses or petechiae. Results & Data ([facility]) Vital Signs (Past 12 Hours) Vital Signs Temp Pulse Resp BP Pulse Ox O2 Del Method 10/15/21 11:25 36.9 C 73 20 155/84 H 98 Room Air 10/15/21 08:06 36.6 C 77 20 160/90 H 98 Room Air 10/15/21 02:48 36.7 C 81 20 130/84 98 Room Air Laboratory Results Intake and Output 10/14/21 10/15/21 10/15/21 22:59 06:59 14:59 Intake Total 250 / 990 100 / 990 Balance 250 / 990 100 / 990 Intake: Oral 250 / 990 100 / 990 Other: Weight 181.7 kg Diagnostic Findings Telemetry: Sinus rhythm, no significant arrhythmia. PG Care Time/CCT Total # of Minutes Spent Total Time Spent with Patient: Total time spent is greater than 50% in coordination of care (as documented) at patient's floor/unit and/or counseling patient: Coding Level of Care Code 34418 Subseq Hosp Care Lvl 2 Diagnoses Chest pain R07.2 Chest pain type: precordial pain Shortness of breath R06.02 Abnormal ECG R94.31 (1) Chest pain Chest pain type: precordial pain Qualified Code(s): R07.2 - Precordial pain
[2021-10-15] MEDS ORDERED: hydrOXYzine HCl 10 MG TAB PO PRN (15:02)
--- NOTE | 2021-10-15 15:05 | Hospitalist Progress Note ---
Date of Service October 15, 2021 Assessment & Plan (1) Pericarditis: Plan: With chest pains, chronic exertional dyspnea, and now with ESR 110. ECHO normal. ECG with inverted TWs inferior leads, trops negative x 2 Consulted Cardiology-concern for pericarditis DId have recent fever and could have viral illness/post viral pericarditis. COVID negative -started colchicine 0.6mg po bid and is much improved with her symptoms 24 hours later-plan to continue for several months -follow clinically -No need for NSAIDs as her pain is improving with colchicine alone -Follow ESR in the morning -Will need outpatient cardiology follow-up (2) Shortness of breath: Plan: Likely due to morbid obesity and significant deconditioning. Patient's mother had CHF, and she is very concerned about this as well. BNP was normal. POx normal at rest and dropped to 95% with exercise today during walk with nurse do not suspect PE Dopplers legs neg Echo normal here CT chest checked without contrast given history of breast cancer and radiation- shows scarring versus atelectasis at the bases otherwise negative Dyspnea likely restrictive lung disease due to obesity -she is asking for request to obesity medicine specialist-gave info for Dr. Catina Wilcox on discharge -Needs 2 step walk test prior to discharge -Needs PFTs, sleep study as outpt (3) Chest pain: Plan: 2/2 pericarditis as above some substernal CP burning in nature is 2/2 GERD as was relieved instantly with GI cocktail started Protonix and had improvement of the burning type of chest pain (4) Exercise hypoxemia: Plan: Reports at home and in the ER with pulse ox dropping to 88% with exertion Concern for PE due to elevated d-dimer, but d-dimer is elevated in obesity. "Since increase in body size is associated with coagulation activation, D-dimer is elevated in many obese patients making this laboratory tool irrelevant in excluding thrombosis." (https://academic.oup.com/qjmed/article/110/[email or web address]/[email or web address]). - B/l Dopplers negative for DVT - CTA was attempted in the ER, but IV site blew and IV team was unable to find any other sites. To get CTA, she would need a central line or EJ placed. - My concern is really quite low for PE. After her anxiety has subsided, she is not tachycardic. She is not hypoxemic. Troponin and BNP both normal. - echo shows no signs of right-heart strain -Again, encouraged weight loss as an outpatient (5) Abnormal ECG: Plan: Some TWIs in aVF. likely 2/2 pericarditis - Troponin negative after 3-4 weeks of shortness of breath and no chest pain. Will trend troponins and EKGs, but low concern for cardiac ischemia. -Plan for treadmill stress test Saturday as per Cardio recommendations (6) Anxiety: Plan: Anxiety clearly playing a large role in her presentation. -she has been on SSRIs in the past which she cannot recall the names of, and does not think they helped --Hydroxyzine did help her here today and will prescribe this on discharge at 10 mg p.o. every 8 hours as needed for anxiety -She will follow-up with [facility] for psychiatry as an outpatient (7) GERD without esophagitis: Plan: Added protonix-continue on discharge (8) Morbid obesity: Plan: BMI 64.7 needs weight loss, referred to Obesity Med as above Plan Dispo-continued stay for cardiac treadmill stress test on Saturday. Will need discharged home with colchicine, Protonix, hydroxyzine. Needs follow-up with cardiology and obesity medicine. Admission and Anticipated Discharge Date Admission Date: October 13, 2021 Subjective Pt reports feeling so much better today and far less burning sensation in her chest and less aching in the back, chest, and left upper arm. She was able to walk 3 laps around the hallways today and pulse ox only dropped to 95% at the lowest. She feels that the usual swelling in her ankles and feet is the best its been a long time since following a low-sodium diet. He is in good spirits. She was having anxiety earlier and took hydroxyzine which she reports helped anxiety but did make her very drowsy. She is not interested in SSRI at this time as she feels it did not help her in the past. She plans on following up with psychiatry as an outpatient. I discussed her case with cardiology. Telemetry with normal sinus rhythm with rates in 70s to 80s Review of Systems Review of Systems: All systems reviewed & are unremarkable except as noted in HPI & below Physical Exam Constitutional: WD/WN, vitals as above + morbidly obese Eyes: + anicteric sclerae Neck: trachea midline, no thyromegaly Respiratory: normal respiratory effort, lungs clear to auscultation Cardiovascular: RRR, no murmur, no edema Chest (Breasts): Chest: normal inspection of chest Gastrointestinal (Abdomen): normal bowel sounds, soft, nontender, no hepatosplenomegaly Musculoskeletal: Extremities: extremities normal to inspection; no cyanosis and no clubbing Skin: no rashes, warm and dry Neurologic: moves all extremities and awake; no focal motor deficits Psychiatric: Orientation: alert and oriented x 3 Affect: euthymic affect Lymphatic: no lymphedema Results & Data Results & Data ([facility]) Vital Signs (Past 12 Hours) Vital Signs Temp Pulse Resp BP Pulse Ox O2 Del Method 10/15/21 14:24 37.0 C 93 H 20 148/91 H 98 Room Air 10/15/21 11:25 36.9 C 73 20 155/84 H 98 Room Air 10/15/21 08:06 36.6 C 77 20 160/90 H 98 Room Air Laboratory Results 10/15/21 10/15/21 10/14/21 Range/Units 11:32 11:32 16:41 ESR 110 H (0-20) mm/hr Estimat Average Glucose Pending Hemoglobin A1c Pending TSH 2.442 (0.300-4.500) uIu/ml PG Care Time/CCT Total # of Minutes Spent Total Time Spent with Patient: Total time spent is greater than 50% in coordination of care (as documented) at patient's floor/unit and/or counseling patient: Coding Level of Care Code 88889 Subseq Hosp Care Lvl 3 Diagnoses Pericarditis I31.9 Shortness of breath R06.02 Chest pain R07.2 Chest pain type: precordial pain Exercise hypoxemia R09.02 Abnormal ECG R94.31 Anxiety F41.9 GERD without esophagitis K21.9 Morbid obesity E66.01 (1) Chest pain Chest pain type: precordial pain Qualified Code(s): R07.2 - Precordial pain
[2021-10-16 06:29] LABS: Basophils # (auto) 0.05 K/uL (0-0.2); Basophils % (auto) 0.6 %; Eosinophils # (auto) 0.22 K/uL (0-0.50); Eosinophils % (auto) 2.7 %; Hematocrit (blood only) 38.4 % (34.1-44.9); Hemoglobin 11.5 g/dl (12.0-16.0); Immature Granulocytes # (auto) 0.02 K/uL (0.00-0.02); Immature Granulocytes % (auto) 0.2 %; Lymphocytes # (auto) 2.28 K/uL (1.2-3.4); Lymphocytes % (auto) 28.2 %; Mean Corpuscular Hemoglobin 21.6 pg (25.0-34.0); Mean Corpuscular Hgb Conc 29.9 g/dL (32.0-36.0); Mean Platelet Volume 9.8 fL (9.4-12.3); Monocytes % (auto) 7.4 %; Neutrophils # (auto) 4.92 K/uL (1.4-6.5); Neutrophils % (auto) 60.9 %; Platelet Count 305 K/uL (130-400); RDW Coefficient of Variation 15.7 % (11.5-14.5); RDW Standard Deviation 39.8 fL (36.4-46.3); Red Blood Count 5.33 M/uL (3.93-5.22); White Blood Count 8.09 K/ul (4.8-10.8)
[2021-10-16 06:56] LABS: BUN Creatinine Ratio 12.5 (10-20); Calcium 9.7 mg/dl (8.5-10.1); Creatinine Clr Calc Pharmacy 151.7 ml/min; Est GFR (African American) 103.2 ml/min; Potassium 3.9 mmol/L (3.5-5.1)
[2021-10-16] MEDS: PANTOprazole 40 MG TAB PO SCH (07:42)
[2021-10-16] MEDS: COLCHICINE 0.6 MG TAB PO SCH (07:42)
[2021-10-16 07:52] LABS: Estimated Average Glucose 123 mg/dl; Hemoglobin A1C 5.9 % (4.5-5.6)
[2021-10-16 08:00] VITALS: O2SAT 99
[2021-10-16 12:21] VITALS: BP 130/87; TEMP 98.4
--- NOTE | 2021-10-16 12:59 | Discharge Summary ---
Date of Service October 16, 2021 Admission HPI Per Admitting Provider 46yo F w/ hx of prior left-sided breast cancer who presents with shortness of breath. The patient reports that for 3-4 weeks, she has been increasingly short of breath with exertion. She reports that she is very sedentary at baseline. She works from home and reports that she mostly sits at her computer and walks to and from the bathroom throughout the day. She otherwise has no notable exercise. Over the last 3-4 weeks, she notes that she has had some increased shortness of breath even with her walking. Sometimes, she will also note some mild chest discomfort that resolves with rest. The patient went to her PCP's office today and reportedly had a pulse ox of 88% with exertion. She was also tachycardic with TW inversions in EKG; however, denied any chest pain at the time. She also notes that last Saturday, she had a cough with some mild pink frothy sputum. Principal Diagnosis Suspected acute pericarditis producing chest pain, abnormal EKG Discharge Exam General-alert and oriented x3, no fevers, no chills. Morbid obesity HEENT-head atraumatic and normocephalic, pupils equal and reactive to light, extraocular muscles intact Neck-no lymphadenopathy or thyromegaly, trachea midline Chest-clear to auscultation percussion. No rales wheezing or rhonchi Cardiac-regular rate and rhythm, normal S1 and S2. No audible friction rub Abdomen-normal bowel sounds, nontender, no hepatosplenomegaly Extremities-no cyanosis, clubbing, or edema Neuro-cranial nerves II through XII intact, motor and sensory function within normal limits, strength symmetrical , no focal deficits Psych-normal affect, normal mood Discharge Data Allergies Allergy/AdvReac Type Severity Reaction Status Date / Time Penicillins Allergy Mild rash Verified 10/13/21 19:37 Consultations 10/13/21 16:11 ED Decision to Admit Stat 10/13/21 16:21 ED Decision to Admit Stat 10/14/21 11:05 Consult Cardiology Routine Ordered Studies 10/13/21 16:10 US venous doppler LE BI Stat 10/14/21 16:24 CT chest diagnostic wo con Urgent Hospital Course (1) Pericarditis: With chest pains, chronic exertional dyspnea, and now with ESR 110. ECHO normal. ECG with inverted TWs inferior leads, trops negative x 2 Consulted Cardiology-concern for pericarditis DId have recent fever and could have viral illness/post viral pericarditis. COVID negative -started colchicine 0.6mg po bid and is much improved with her symptoms -plan to continue for several months -follow clinically -No need for NSAIDs as her pain is improving with colchicine alone -Will need outpatient cardiology follow-up (2) Shortness of breath: Likely due to morbid obesity and significant deconditioning. Patient's mother had CHF, and she is very concerned about this as well. BNP was normal. POx normal at rest and dropped to 95% with exercise today during walk with nurse do not suspect PE Dopplers legs neg Echo normal here CT chest checked without contrast given history of breast cancer and radiation- shows scarring versus atelectasis at the bases otherwise negative Dyspnea likely restrictive lung disease due to obesity -she is asking for request to obesity medicine specialist-gave info for Dr. Catina Wilcox on discharge -Needs PFTs, sleep study as outpt (3) Chest pain: 2/2 pericarditis as above some substernal CP burning in nature is 2/2 GERD as was relieved instantly with GI cocktail started Protonix and had improvement of the burning type of chest pain (4) Exercise hypoxemia: Reports at home and in the ER with pulse ox dropping to 88% with exertion Concern for PE due to elevated d-dimer, but d-dimer is elevated in obesity. "Since increase in body size is associated with coagulation activation, D-dimer is elevated in many obese patients making this laboratory tool irrelevant in excluding thrombosis." ( https://academic.[email or web address]/qjmed/article/[email or web address]/477/3262545). - B/l Dopplers negative for DVT - CTA was attempted in the ER, but IV site blew and IV team was unable to find any other sites. To get CTA, she would need a central line or EJ placed. - concern is low for PE. Not tachycardic. Not hypoxemic. Troponin and BNP both normal. - echo shows no signs of right-heart strain -Again, encouraged weight loss as an outpatient (5) Abnormal ECG: Some TWIs in aVF. likely 2/2 pericarditis - Troponin negative after 3-4 weeks of shortness of breath and no chest pain. Will trend troponins and EKGs, but low concern for cardiac ischemia. Attempted cardiac stress test today, October 16, failed. (6) Anxiety: Anxiety clearly playing a large role in her presentation. -she has been on SSRIs in the past which she cannot recall the names of, and does not think they helped --Hydroxyzine did help her here today and will prescribe this on discharge at 10 mg p.o. every 8 hours as needed for anxiety -She will follow-up with [facility] for psychiatry as an outpatient (7) GERD without esophagitis: Added protonix-continue on discharge (8) Morbid obesity: BMI 64.7 needs weight loss, referred to Obesity Med as above Plan Dispo- discharge to home today, October 16. Follow-up with cardiology in 1 month. Stress testing can be reattempted as an outpatient if needed. Home with colchicine, Protonix. Needs follow-up with cardiology and obesity medicine. Total Time Total Time Spent Total Time Spent (In Minutes): 35 minutes Discharge Plan Discharge Items Patient Disposition: Home - Self-Care Reason For Visit: CHEST PAIN, SOB Discharge Diagnosis: Suspected acute pericarditis producing chest pain Activity: Resume your previous activity Non-emergency contact: Primary Care Provider Call non-emergency contact if: you have any medication questions and your symptoms worsen Follow-up/Referrals: Oumou Elizalde MD [Primary Care Provider] - Diet: Heart Healthy Addtl Attending Provider Instructions: Continue colchicine twice daily. Follow-up with Dr. Doroteo Billy in cardiology in 1 month Pending Studies at Discharge: No Stand-Alone Forms: My VoAPPs, Smoking Cessation Medications and DC Order Prescriptions: New pantoprazole 40 mg Tablet,Delayed Release (Dr/Ec) 40 mg PO BID Qty: 30 0RF colchicine [Colcrys] 0.6 mg Tablet 0.6 mg PO BID Qty: 60 0RF Continued exemestane 25 mg tablet 25 mg PO DAILY ascorbic acid (vitamin C) 1,000 mg tablet 2 gm PO DAILY [place] 3 Fish Oil 684-1,200 mg Capsule,Delayed Release(Dr/Ec) 1 cap PO DAILY Rx Instructions: UNSURE STRENGTH cholecalciferol (vitamin D3) [Vitamin D3] 50 mcg (2,000 unit) Tablet 100 mcg PO DAILY [place] Q Coq10 10 mg PO DAILY Rx Instructions: TAKE 2, 5 MG CAPS Discharge Orders: Discharge Order (Routine); Ordered 10/16/21 Ordered By: Chase Valladares Admission Data Admit Date/Time: 10/15/21 15:12 Attending Provider: Chase Valladares Admit Provider: Martínez Anthony Primary Care Provider: Oumou Elizalde Other Providers: Martínez Anthony ; Doroteo Billy Coding Level of Care Code D/C DAY MANAGEMENT >30 MINS Diagnoses Pericarditis I31.9 Shortness of breath R06.02 Chest pain R07.2 Chest pain type: precordial pain Exercise hypoxemia R09.02 Abnormal ECG R94.31 Anxiety F41.9 GERD without esophagitis K21.9 Morbid obesity E66.01
[2021-10-16 13:16] VITALS: PULSE 77
== END 2021-10-16 13:56 | disposition home or self-care (01) | DRG 315 ==
LOC: 2N 11:43 → ED 11:43 → SUATTDRO 19:00 → 2N 19:52 → SUATTDRO 10-15 15:12